=== PATIENT | female | born 1990 | race Caucasian/White ===

== ENCOUNTER 2024-01-14 06:17 | Day surgery (SDC) | payer OTHER ==
[2024-01-13 11:15] VITALS: BMI 24.6
[2024-01-14] MEDS ORDERED: ceFAZolin SODIUM 1 GM VIAL ONE (07:14)
[2024-01-14] MEDS ORDERED: MIDAZOLAM HCL 2 MG/2 ML SINGLE DOSE VIAL ONE (07:15)
[2024-01-14] MEDS ORDERED: PROPOFOL 40 ML ONE (07:15)
[2024-01-14] MEDS ORDERED: LIDOCAINE HCL 1%, 10 MG/ML (20ML VIAL) ONE (07:24)
[2024-01-14] MEDS ORDERED: BUPIVACAINE HCL/PF 0.5% (5MG/ML) 10 ML VIAL ONE ×2 (07:25→08:05)
[2024-01-14] MEDS ORDERED: ONDANSETRON 4 MG/2 ML VIAL ONE (07:47)
[2024-01-14] MEDS ORDERED: DEXAMETHASONE SOD PHOSPHATE 4 MG/1 ML VIAL ONE ×2 (07:47→08:02)
[2024-01-14] MEDS ORDERED: VANCOMYCIN 1,000 MG VIAL (RESTRICTED TO ID ONLY) ONE (08:02)
[2024-01-14] MEDS ORDERED: KETOROLAC TROMETHAMINE 30 MG/1 ML VIAL ONE (08:05)
[2024-01-14] MEDS ORDERED: oxyCODONE HCL 5 MG TABLET PO PRN (08:25)
[2024-01-14] MEDS ORDERED: ONDANSETRON 4 MG/2 ML VIAL IVPUSH PRN (08:25)
[2024-01-14] MEDS ORDERED: LACTATED RINGERS SOLUTION 1,000 ML IV SCH (08:30)
[2024-01-14 09:11] VITALS: RESP 18
[2024-01-14 13:07] VITALS: BP 110/64; PULSE 64; TEMP 97.3
== END 2024-01-14 09:40 | disposition home or self-care (01) ==
LOC: FASU 06:17
PROVIDERS: ATTEND Podiatrist
PROC: 0SSH05Z Reposition Right Tarsal Joint with External Fixation Device, Open Approach (ICD-10-PCS; principal; 2024-01-14 07:30)
DX: M20.41 Other hammer toe(s) (acquired), right foot (principal)
CPT/HCPCS: 73630-TC-RT-FY; 81025; 88305-TC; 88311-TC; 94760